=== PATIENT | male | born 1970 | race Caucasian/White ===

== ENCOUNTER 2021-05-27 02:58 | Inpatient (IN) | payer BC ==
[~2021-05-27] VITALS: Ht 175.3 cm; Wt 65.8 kg
--- NOTE | 2021-05-27 03:00 | NUR ---
Dr. Mena at bedside for MSE.
[2021-05-27] MEDS ORDERED: LORAZEPAM 0.5 MG TABLET PO ONE (03:15)
[2021-05-27] MEDS ORDERED: ASPIRIN 81 MG TAB.CHEW PO ONE (03:15)
[2021-05-27 03:24] LABS: HEMATOCRIT 40.3 % (36.7-47.1); MEAN CORPUSCULAR HEMOGLOBIN 27.3 uug (23.8-33.4); MEAN CORPUSCULAR VOLUME 80.4 fL (73.0-96.2); PLATELET COUNT (AUTO) 193 K/uL (152-348)
[2021-05-27] MEDS ORDERED: ASPIRIN 81 MG TAB.CHEW ONE (03:27)
[2021-05-27] MEDS ORDERED: LORAZEPAM 1 MG TABLET ONE (03:28)
[2021-05-27 03:29] LABS: CARBON DIOXIDE 28 mmol/L (21-32); CHLORIDE 103 mmol/L (98-107); CREATININE 0.9 mg/dL (0.6-1.3); GLUCOSE 143 mg/dL (74-106); POTASSIUM 3.2 mmol/L (3.5-5.1); UREA NITROGEN, BLOOD 20 mg/dL (7-18)
[2021-05-27 03:37] LABS: ALANINE AMINOTRANSFERASE 31 U/L (16-63); ALKALINE PHOSPHATASE 63 U/L (50-136); ASPARTATE AMINOTRANSFERASE 19 U/L (15-37); BILIRUBIN,DIRECT 0.1 mg/dL (0.0-0.2); BILIRUBIN,TOTAL 0.3 mg/dL (0.2-1.0); TOTAL PROTEIN, SERUM 7.2 g/dL (6.4-8.2)
[2021-05-27] MEDS ORDERED: POTASSIUM BICARBONATE/CIT AC 25 MEQ TABLET.EFF PO ONE (03:45)
[2021-05-27] MEDS ORDERED: POTASSIUM BICARBONATE/CIT AC 25 MEQ TABLET.EFF ONE (03:49)
--- NOTE | 2021-05-27 05:46 | NUR ---
Called [facility] to page Kenyetta Liu NP.
--- NOTE | 2021-05-27 05:59 | NUR ---
Dr. Mena on panel call with Kenyetta Liu NP.
[2021-05-27] MEDS ORDERED: ONDANSETRON 4 MG/2 ML VIAL IV PRN (07:00)
[2021-05-27] MEDS ORDERED: MAGNESIUM HYDROXIDE 30 ML LIQUID UDC PO PRN (07:00)
[2021-05-27] MEDS ORDERED: ACETAMINOPHEN 325 MG TABLET PO PRN (07:00)
[2021-05-27] MEDS ORDERED: REMEDY ESSENTIAL ZINC PASTE 113 GM TP PRN (07:00)
--- NOTE | 2021-05-27 07:07 | NUR ---
Report given to Trixie lazo.
--- NOTE | 2021-05-27 08:04 | NUR ---
Telephone report givento Anabel Arauz. All systems covered.
--- NOTE | 2021-05-27 08:05 | NUR ---
HR of 54.sbp 138/83
--- NOTE | 2021-05-27 08:20 | NUR ---
Pt. moved to room 330 get sitauted in bed connected to telemetry monitorin.
[2021-05-27] MEDS ORDERED: ASPIRIN 81 MG TAB.CHEW PO SCH (09:00)
--- NOTE | 2021-05-27 09:00 | NUR ---
Received patient a/o x4 via wheelchair from ED. Denies pain, palpitations and SOB. [facility] assessment ruiz, skin is intact. Vital signs stable. Safety initiated. Call light within reach. Will continue to monitor.
[2021-05-27 09:31] VITALS: BP 133/79
--- NOTE | 2021-05-27 13:13 | NUR ---
Pt discharged in stable condition. Refused a wheelchair. IV was removed. Discharge instruction was given, questions answered.
[2021-05-28] MEDS ORDERED: ASPIRIN 81 MG TAB.CHEW PO SCH (09:00)
== END 2021-05-27 13:10 | disposition home or self-care (01) | DRG 552 ==
LOC: ER 03:02 → TELE3 08:03
PROVIDERS: ADMIT Internal Medicine; ATTEND Internal Medicine
DX: M54.32 Sciatica, left side (principal); M51.36 Other intervertebral disc degeneration, lumbar region; E87.6 Hypokalemia; G89.29 Other chronic pain; M19.90 Unspecified osteoarthritis, unspecified site; R94.31 Abnormal electrocardiogram [ECG] [EKG]; R73.9 Hyperglycemia, unspecified; Z20.822 Contact with and (suspected) exposure to COVID-19; M25.552 Pain in left hip; F43.9 Reaction to severe stress, unspecified; R06.4 Hyperventilation; R20.0 Anesthesia of skin
CPT/HCPCS: 36415; 71045; 83735; 84484; 85025; 93005; A4663; G0378